=== PATIENT | male | born 1960 | race Two or more races ===

== ENCOUNTER 2021-04-16 20:09 | Emergency (ER) | payer SELFPAY ==
[~2021-04-16] VITALS: Ht 175.3 cm; Wt 73.0 kg
[2021-04-16 20:12] VITALS: BP 116/87
== END 2021-04-16 21:45 | disposition left against medical advice (07) ==
LOC: ER 21:28
DX: R51.9 Headache, unspecified (principal); Z53.21 Procedure and treatment not carried out due to patient leaving prior to being seen by health care provider
CPT/HCPCS: 93005